=== PATIENT | female | born 1950 | race Caucasian/White ===

== ENCOUNTER 2018-10-01 15:46 | Inpatient (IN) | payer OTHER ==
[~2018-10-01] VITALS: Ht 154.9 cm; Wt 59.9 kg
[2018-10-01] MEDS ORDERED: FUROSEMIDE40 MG (16:38)
[2018-10-01] MEDS ORDERED: BRILINTA90 MG (16:39)
[2018-10-01] MEDS ORDERED: ATORVASTATIN CA40 MG (16:39)
[2018-10-01] MEDS ORDERED: CARVEDILOL3.125 MG (16:40)
[2018-10-01] MEDS ORDERED: ADULT ASPIRIN81 MG (16:40)
[2018-10-01] MEDS ORDERED: AMIODARONE HCL200 MG (16:41)
[2018-10-01] MEDS ORDERED: SYNTHROID112 MCG (16:41)
[2018-10-01] MEDS ORDERED: ENALAPRIL MALE2.5 MG (16:42)
--- NOTE | 2018-10-01 16:42 | NUR ---
PTE SE RECIBE POR SHORTNESS OF BREATHE REFIERE PTE Y FAMILIAR.
--- NOTE | 2018-10-01 19:04 | NUR ---
SE RECIBE PTE ALERTA Y ORIENTADA EN LAS 3 ESFERAS EN SILLA DE NIYA AL AREA DE DOLOR DE PECHO. EVALUA PTE. SE ORIENTA A PTE SOBRE [place] MEDICO. PTE REFIERE COMPRENDER. SE UBICA A PTE EN CARMELA, SE CONECTA A MONITOR CARDIACO Y OXIMETRIA DE PULSO. SE COLECTAN MUESTRAS DE LABORATORIO BAJO MEDIDAS ASEPTICAS. SE ADMINISTRAN MEDICAMENTOS EAMON ORDEN MEDICA. SE NOTIFICAN [place] X. SE ALONDRA A PTE EN CAMA CON BARANDAS ELEVADAS POR SEGURIDAD Y SE MANTIENE EN OBSERVACION POR CAMBIOS.
--- NOTE | 2018-10-01 23:10 | NUR ---
SE RECIBE DEL TURNO ANTERIOR PTE ALERTA Y ORIENTADA X 3 ESFERAS,EN CARMELA CON BARANDAS ELEVADAS EN COMPANIA DE FAMILIAR QUIEN SE ENCUENTRA DIALOGANDO CON DR STEELE TELEFONICAMENTE,PTE CONECTADA A MONITOR CARDIACO Y OXIMETRIA,PTE NO PRESENTA DIFICULTAD RESP NI DOLOR DE PECHO AL MOMENTO.PTE CON AREA DE VENOPUNCION PATENTE Y ZOEY DE EDEMA EN MANO LT MELINDA FLUIDOS DE MANTENIMIENTO BAJANDO SIN DIFICULTAD,SE EXTRAEN MUESTRAS BAJO MEDIDAS ASEPTICAS EAMON ORDEN MEDICA Y SE NOTIFICA ABG.PTE PRESENTA BRADICARDIA,DR STEELE NIOTIFICADO SOBRE EL MISMO.SE ALONDRA BAJO OBSERVACION POR CAMBIOS.
[2018-10-06] MEDS ORDERED: BRILINTA90 MG PO (13:54)
[2018-10-06] MEDS ORDERED: AMIODARONE HCL200 MG PO (13:54)
[2018-10-06] MEDS ORDERED: LIPITOR40 MG PO (13:55)
[2018-10-06] MEDS ORDERED: ISORDIL10 MG PO (13:55)
[2018-10-06] MEDS ORDERED: TOPROL XL25 M1 PO (13:55)
[2018-10-06] MEDS ORDERED: LEVOTHYROXINE100 MCG PO (13:56)
[2018-10-06] MEDS ORDERED: LASIX20 MG PO (13:57)
[2018-10-06] MEDS ORDERED: XOPENEX HFA15 GM IH (14:05)
== END 2018-10-06 14:18 | disposition home or self-care (01) | DRG 292 ==
LOC: ER 15:46 → ICU-2 23:12 → SEC-K 10-05 12:36 → MEDI 10-05 13:24
PROVIDERS: ADMIT Internal Medicine
PROC: BT4JZZZ Ultrasonography of Kidneys and Bladder (ICD-10-PCS; principal; 2018-10-01)
PROC: B246ZZZ Ultrasonography of Right and Left Heart (ICD-10-PCS; 2018-10-01)
PROC: 4A033R1 Measurement of Arterial Saturation, Peripheral, Percutaneous Approach (ICD-10-PCS; 2018-10-01)
PROC: 3E0F7GC Introduction of Other Therapeutic Substance into Respiratory Tract, Via Natural or Artificial Opening (ICD-10-PCS; 2018-10-01)
PROC: 0T9B70Z Drainage of Bladder with Drainage Device, Via Natural or Artificial Opening (ICD-10-PCS; 2018-10-01)
PROC: 4A12X4Z Monitoring of Cardiac Electrical Activity, External Approach (ICD-10-PCS; 2018-10-02)
DX: I11.0 Hypertensive heart disease with heart failure (principal); I01.1 Acute rheumatic endocarditis; N17.8 Other acute kidney failure; I50.43 Acute on chronic combined systolic (congestive) and diastolic (congestive) heart failure; I25.10 Atherosclerotic heart disease of native coronary artery without angina pectoris; E03.8 Other specified hypothyroidism; Z88.0 Allergy status to penicillin; I13.0 Hypertensive heart and chronic kidney disease with heart failure and stage 1 through stage 4 chronic kidney disease, or unspecified chronic kidney disease; N18.2 Chronic kidney disease, stage 2 (mild); N39.8 Other specified disorders of urinary system